=== PATIENT | female | born 1955 | race Caucasian/White ===

== ENCOUNTER → 2017-07-16 | Outpatient (CLI) | payer OTHER ==
[~2017-07-16] MED LIST: AMBIEN 10 MG TA10 MG; CLARINEX5 MG; DAYPRO600 MG; FISH OIL 1,0001 EAC5; LAMICTAL XR50 MG; MULTIVITAMINS1 EAC7; RANITIDINE 150150 M1; RELAFEN500 MG; TRAMADOL 50 MG50 MG; VYTORIN 10-401 EACH; ZYRTEC10 M2
== END ==
LOC: RAD 13:37
DX: Z12.31 Encounter for screening mammogram for malignant neoplasm of breast (principal)

== ENCOUNTER → 2021-04-11 | Day surgery (SDC) | payer OTHER ==
[~2021-04-11] VITALS: Ht 172.7 cm; Wt 86.2 kg
[~2021-04-11] MED LIST changes: +BRINTELLIX20 MG PO; +CLONIDINE HCL0.1 MG PO; +COZAAR 25 MG TA25 M1 PO; +CRESTOR10 MG PO; +OLOPATADINE HC2.5 ML OPHTHALMIC; +PROAIR HFA8.5 GM INH; +PROTONIX40 M2 PO; +RESTASIS MULTI5.5 ML OPHTHALMIC; +SYMBICORT160 MCG/4. INH; +WELLBUTRIN XL300 MG PO
[2021-04-11 13:08] VITALS: BP 126/81
--- NOTE | 2021-04-11 21:21 | O ---
[facility] [place] [address] OPERATIVE REPORT Name: SAPPHIRE MALLOY Room #: REG [facility].#: [id number] Admission: 04/11/21 Attend Phys: Moose Mai MD Discharge: Date of : 55 Report #: [id number] THIS REPORT FOR: cc: Roselia Vizcarra MD, Kristin E. MD McCabe,Moose Wade MD ~ DATE OF SERVICE: 04/11/2021 SERVICE: Orthopedics. FACILITY: [facility]. SURGEON: Moose Mai MD YEAST CAKE CUTTER: Esther Simpson NP INDICATIONS FOR YEAST CAKE CUTTER: Retraction, assistance with suture management, as well as the repair and wound closure. PREOPERATIVE DIAGNOSIS: Acute left knee quadriceps tendon rupture. POSTOPERATIVE DIAGNOSIS: Acute left knee quadriceps tendon rupture. PROCEDURE PERFORMED: Open left knee quadriceps tendon repair. COMPLICATIONS: None. DRAINS: None. SPECIMENS: None. FINDINGS: Full-thickness complete quad tendon rupture repaired with transosseous suture technique. A small partial tear of the patellar tendon repaired with [id number] suture tape repair. HISTORY: The patient is a lady who fell 2 nights ago at home and presented to clinic with a swollen, painful knee and unable to perform straight leg raise. She was indicated for urgent MRI, which confirmed the diagnosis of a quad tendon rupture and she is indicated for surgical treatment. Risks, benefits, alternatives and indications for surgery discussed with her in detail. Risks include but are not limited to pain, bleeding, infection, injuring nerves or blood vessels, persistent pain, persistent weakness and dysfunction, as well as complications related to anesthesia including thromboembolic disease. Despite the risks, she wished to proceed. PROCEDURE IN DETAIL: After left lower extremity was correctly identified as the [facility] [address] [place] [address] OPERATIVE REPORT Name: VJNICKCHIQUISAPPHIRE S Room #: REG [facility]#: [id number] Admission: 04/11/21 Attend Phys: Moose Mai MD Discharge: Date of : 55 Report #: [id number] operative extremity, the patient was taken to the operating room where general anesthesia was induced without complication. She was padded appropriately. Prophylactic antibiotics were administered at appropriate time. Tourniquet was applied to left leg. Left lower extremity was then prepped and draped in standard sterile fashion. Timeout procedure performed. Esmarch was used, tourniquet inflated to 250 mmHg. A standard anterior approach was made to the knee. Full-thickness skin flaps were developed. The quad tendon rupture was easily visualized. There was a complete rupture and the hematoma was evacuated. The joint was inspected. The patella was not effected in terms of there was no fracture, but it had completely avulsed off the superior pole of the patella. A rongeur was used to decorticate the patella and create a small trough for quad tendon repair. [employer] 2.4-mm suture tape was used to run Krackow sutures with a total of four limbs with two separate sutures, running proximally and then distally and then these were passed through a total of three transosseous drill holes in the patella. The knee was placed in extension. The tendon was reduced and then tied to further repair and held securely. We then assessed the initial repair and the repair was stable to flexion to 30 degrees. I then proceeded with closure of the retinaculum using a 1.4-mm suture tape and then eventually an 0 Ethibond with interrupted sutures repairing the peritenon layer as well as the medial retinacular tear, which went all the way around the vastus medialis and close down the traumatic arthrotomy. After this proximal repair was completed, we examined distally, there was a partial-thickness tear of the patellar tendon. This was repaired with the Ethibond as well. I then assessed stability of the repair and it was stable to approximately 40 degrees of flexion. The wound was thoroughly irrigated once more, 0 Vicryl was used to oversew the suture knots from the 2.4-mm tape and then the skin was closed with 2-0 Vicryl followed by skin yuly. Sterile dressing was applied followed by compression stocking and a knee immobilizer and a [employer]Care. POSTOPERATIVE PROTOCOL: Nonweightbearing x6 weeks. Range of motion will be 0-30 degrees starting at 3 weeks and we will advance her 10-15 degrees per week with a goal of 90 degrees of flexion by 6 weeks and she is then going to be advanced to full weightbearing and full range of motion. <ELECTRONICALLY SIGNED> By: Moose Mai MD 04/11/21 [id number] Moose Mai MD /nt
== END | disposition home or self-care (01) ==
LOC: OR 08:16
PROVIDERS: ATTEND Orthopaedic Surgery Sports Medicine
DX: S76.112A Strain of left quadriceps muscle, fascia and tendon, initial encounter (principal); I10 Essential (primary) hypertension; E78.00 Pure hypercholesterolemia, unspecified; J45.909 Unspecified asthma, uncomplicated; K21.9 Gastro-esophageal reflux disease without esophagitis; Z98.890 Other specified postprocedural states; Z79.899 Other long term (current) drug therapy; Z20.822 Contact with and (suspected) exposure to COVID-19; Z88.2 Allergy status to sulfonamides; Z88.8 Allergy status to other drugs, medicaments and biological substances; X58.XXXA Exposure to other specified factors, initial encounter; Y93.89 Activity, other specified; Y92.89 Other specified places as the place of occurrence of the external cause; Y99.8 Other external cause status
CPT/HCPCS: 50010; 50101; 50386; 51320; 51412; 52001; 52258; 52282; 56521; 56524; 56525; 56527; 56528; 57091; 57180; 62110; 62900; 64039; 70005